=== PATIENT | female | born 1950 | race Caucasian/White ===

== ENCOUNTER → 2018-01-06 12:23 | Outpatient (CLI) | payer OTHER, SELFPAY ==
--- NOTE | 2018-01-06 | DI.MG.S_ITS ---
BILATERAL DIGITAL SCREENING MAMMOGRAM 3D/2D WITH CAD: 01/06/2018 CLINICAL: Routine screening. Comparison is made to exams dated: 11/30/2016 mammogram, 09/16/2015 mammogram, and 07/02/2014 mammogram - [facility]. The tissue of both breasts is heterogeneously dense. This may lower the sensitivity of mammography. Current study was also evaluated with a Computer Aided Detection (CAD) system. There is a biopsy clip in the left breast. No significant masses, calcifications, or other findings are seen in either breast. There has been no significant interval change. IMPRESSION: NEGATIVE There is no mammographic evidence of malignancy. A 1 year screening mammogram is recommended. This exam was interpreted at Station ID: [id number]. NOTE: For mammograms, a report in lay terms will be sent to the patient. Approximately 15% of breast malignancies will not be visualized mammographically. In the management of a palpable breast mass, a negative mammogram must not discourage biopsy of a clinically suspicious lesion. Electronically Signed By: Luis Daniel ordonez/umm:01/06/2018 13:30:38 letter sent: Normal Exam ACR BI-RADS Category 1: Negative 3341F
== END ==
PROVIDERS: PCP Family Medicine; Visit Provider Family Medicine
DX: Z12.31 Encounter for screening mammogram for malignant neoplasm of breast (principal)
CPT/HCPCS: 77063; 77067

== ENCOUNTER → 2018-12-19 14:42 | Outpatient (CLI) | payer OTHER, SELFPAY ==
--- NOTE | 2018-12-19 | DI.RAD.S_ITS ---
PROCEDURE: XR KNEE LT 3V INDICATIONS: LEFT KNEE PAIN TECHNIQUE: 3 views of the knee were acquired. COMPARISON: None. FINDINGS: Bones: No fractures or dislocations there is mild thinning of the joints interspace at the medial compartment. No suspicious bony lesions. Soft tissues: No joint effusion. No suspicious soft tissue calcifications. IMPRESSION: Mild medial compartment knee joint osteoarthritis, no trauma found. Dictated by: Augie Nazario M.D. on 12/19/2018 at 15:18 Approved by: Augie Nazario M.D. on 12/19/2018 at 15:18
== END ==
PROVIDERS: PCP Family Medicine; Visit Provider Family Medicine
DX: M25.562 Pain in left knee (principal); M17.12 Unilateral primary osteoarthritis, left knee
CPT/HCPCS: 73562

== ENCOUNTER → 2018-12-26 09:35 | Outpatient (CLI) | payer OTHER, SELFPAY | PROVIDERS: PCP Family Medicine; Visit Provider Family Medicine | DX: M81.0 Age-related osteoporosis without current pathological fracture (principal); Z78.0 Asymptomatic menopausal state; Z82.62 Family history of osteoporosis; Z87.891 Personal history of nicotine dependence | CPT/HCPCS: 77080 ==

== ENCOUNTER → 2019-01-11 07:37 | Outpatient (CLI) | payer OTHER, SELFPAY ==
--- NOTE | 2019-01-11 | DI.MG.S_ITS ---
BILATERAL DIGITAL SCREENING MAMMOGRAM 3D/2D WITH CAD: 01/11/2019 CLINICAL: Routine screening. Comparison is made to exams dated: 01/06/2018 mammogram, 11/30/2016 mammogram, and 09/16/2015 mammogram - [facility]. The tissue of both breasts is heterogeneously dense. This may lower the sensitivity of mammography. Current study was also evaluated with a Computer Aided Detection (CAD) system. There is a benign biopsy clip in the left breast. No significant masses, calcifications, or other findings are seen in either breast. There has been no significant interval change. IMPRESSION: NEGATIVE There is no mammographic evidence of malignancy. A 1 year screening mammogram is recommended. This exam was interpreted at Station ID: [id number]. NOTE: For mammograms, a report in lay terms will be sent to the patient. Approximately 15% of breast malignancies will not be visualized mammographically. In the management of a palpable breast mass, a negative mammogram must not discourage biopsy of a clinically suspicious lesion. Electronically Signed By: Tommy walters/umm:01/11/2019 11:47:30 letter sent: Normal Exam ACR BI-RADS Category 1: Negative 3341F
== END ==
PROVIDERS: PCP Family Medicine; Visit Provider Family Medicine
DX: Z12.31 Encounter for screening mammogram for malignant neoplasm of breast (principal)
CPT/HCPCS: 77063; 77067

== ENCOUNTER → 2019-07-04 13:32 | Outpatient (CLI) | payer MEDICARE, OTHER, SELFPAY ==
--- NOTE | 2019-07-04 | DI.ECHO.S_ITS ---
[facility] +---------+ : : [address] [place] : : : : [id number] : : : : Phone: [phone]+ Echocardiogram Report + + :Name: SAW JONES Study Date: 07/04/2019 Height: 64 in : :[facility] Weight: 133 lb : : Gender: Female BSA: 1.6 m2 : :: 1950 Age: 69 yrs BP: 142/78 mmHg: :Reason For Study: Hypertension : : Performed By: [facility] Staff : :Referring: JB HOLM : + + Interpretation Summary The left ventricle is normal in size. The ejection fraction is estimated to be 60-65%. The right ventricle is normal in size and function. There is mild aortic valve sclerosis. There is minimally reduced leaflet mobility. There is no hemodynamically significant valvular aortic stenosis. Procedure: A two-dimensional transthoracic echocardiogram with color flow and Doppler was performed. The study quality was technically adequate. There is no prior echocardiogram noted for this patient. The patient was in sinus bradycardia with heart rates between 51-54 bpm during the exam. Left Ventricle: The left ventricle is normal in size. There is mild concentric left ventricular hypertrophy. There is no thrombus. Left ventricular systolic function is normal. The ejection fraction is estimated to be 60-65%. Left ventricular wall motion is normal. MV E/A: 1.0 Med Peak E' Wood: 5.3 cm/sec E/E' med: 16.9. Right Ventricle: The right ventricle is normal in size and function. Atria: The left atrium is mildly dilated. Right atrial size is normal. The interatrial septum is intact with no evidence for an atrial septal defect. Mitral Valve: The mitral valve leaflets appear mildly thickened, but open well. There is mild mitral annular calcification. There is systolic anterior motion of the chordal apparatus. There is trace mitral regurgitation. Aortic Valve: There is mild aortic valve sclerosis. The aortic valve is trileaflet. There is minimally reduced leaflet mobility. There is no hemodynamically significant valvular aortic stenosis. No aortic regurgitation is present. Tricuspid Valve: The tricuspid valve is normal. There is trace tricuspid regurgitation. Pulmonary artery pressures cannot be estimated because of the lack of a measurable TR jet velocity. Pulmonic Valve: The pulmonic valve is not well visualized. There is trace pulmonic regurgitation. Great Vessels: The aortic root is normal size. The dimensions of the ascending aorta are normal. The pulmonary artery is normal size. The IVC is of normal diameter and collapses greater than 50% with a sniff. This suggests a low right atrial pressure of 3 mm Hg. Pericardium/ Pleura There is no pericardial effusion. There is no pleural effusion. MMode/2D Measurements & Calculations LVIDd: 4.7 cm LVOT diam: 2.0 cm LVIDs: 2.9 cm Ao root diam: 3.1 cm FS: 39.0 % EPSS: 0.45 cm IVSd: 1.1 cm LVPWd: 1.1 cm LV parra. diameter/BSA (cm/m^2): 2.9 LV sys. diameter/BSA (cm/m^2): 1.8 LA A2 area: 18.7 cm2 RA long axis: 4.7 cm LA A4 area: 21.0 cm2 RA area: 15.1 cm2 LA length (vol): 5.3 cm RA vol: 41.3 ml LA vol: 63.1 ml RA : 25.1 ml/m2 LA vol index: 38.4 ml/m2 TAPSE: 2.8 cm Doppler Measurements & Calculations Ao V2 max: 179.1 cm/sec LVOT Max Wood: 121.3 cm/sec Ao V2 mean: 133.0 cm/sec LV V1 max P.9 mmHg Ao max P.8 mmHg LV V1 VTI: 30.9 cm Ao mean P.0 mmHg BRITNI(I,D): 2.3 cm2 Ao V2 VTI: 42.0 cm BRITNI(V,D): 2.1 cm2 sev ratio: 0.73 BRITNI indexed to BSA (cm^2/m^2): 1.4 MV E max wood: 89.0 cm/sec PA V2 max: 61.1 cm/sec MV A max wood: 88.1 cm/sec PA V2 mean: 45.9 cm/sec MV E/A: 1.0 PA mean P.94 mmHg Med Peak E' Wood: 5.3 cm/sec PA Accel Time: 0.15 sec E/E' med: 16.9 Lat Peak E' Wood: 8.3 cm/sec E/E' lat: 10.7 E/e' average: 13.8 MV dec time: 0.28 sec SV(LVOT): 96.1 ml Reading Physician:06:55 PM
== END ==
PROVIDERS: PCP Family Medicine; Visit Provider Family Medicine
DX: I35.8 Other nonrheumatic aortic valve disorders (principal); I10 Essential (primary) hypertension
CPT/HCPCS: 93306

== ENCOUNTER → 2020-02-27 08:40 | Outpatient (CLI) | payer MEDICARE, OTHER, SELFPAY ==
--- NOTE | 2020-02-27 | DI.RAD.S_ITS ---
PROCEDURE: XR KNEE RT 3V INDICATIONS: RIGHT KNEE PAIN TECHNIQUE: 3 views of the knee were acquired. COMPARISON: None. FINDINGS: Bones: No fractures or dislocations. No suspicious bony lesions. Mild lateral compartment osteoarthritis. Soft tissues: No joint effusion. No suspicious soft tissue calcifications. IMPRESSION: No fracture. No acute osseous lesion. If symptoms and/or clinical suspicion for pathology persists, further assessment with repeat radiographs (7-10 days) or advanced imaging (e.g. CT, MRI or bone scan) may be helpful. Dictated by: Carole Patel MD, PhD on 02/27/2020 at 10:03 Approved by: Carole Patel MD, PhD on 02/27/2020 at 10:04
== END ==
PROVIDERS: PCP Family Medicine; Referring Provider Family Medicine; Visit Provider Family Medicine
DX: M25.561 Pain in right knee (principal)
CPT/HCPCS: 73562

== ENCOUNTER → 2020-03-02 07:50 | Outpatient (CLI) | payer MEDICARE, OTHER, SELFPAY ==
--- NOTE | 2020-03-02 | DI.MRI.S_ITS ---
PROCEDURE: MR KNEE RT WO CON INDICATIONS: Pain in right knee TECHNIQUE: Noncontrast sagittal PD fast spin echo and T2 fast spin echo with fat saturation, sagittal 3-D FLASH with fat saturation; coronal T1 spin echo and PD fast spin echo with fat saturation, and axial PD fast spin echo with fat saturation through the knee. COMPARISON: [facility], CR, XR KNEE RT 3V, 02/27/2020, 8:35. FINDINGS: Image quality: Excellent. Menisci: The body of the medial meniscus is truncated. There is complex tear in the body and posterior horn of the medial meniscus. There is also a tear in the free edge of the anterior horn of the medial meniscus. The lateral meniscus demonstrates normal morphology and internal signal. The meniscal root ligaments appear intact. Cruciate ligaments: The anterior appears thickened and demonstrates increased signal consistent with partial tear. The posterior cruciate ligament appears intact. Medial structures: There is grade 2 sprain of the anterior fibers of the medial collateral ligament. The semimembranosus tendon insertions and meniscocapsular junction appear intact. Visualized portions of the pes anserinus tendons appear normal. No abnormal bursal fluid. Lateral structures: The lateral collateral ligament, long and short heads of the biceps femoris tendon appear intact. The popliteus tendon appears normal. Iliotibial band appears normal. Anterior structures: The quadriceps and patellar tendons appear intact. Patellar alignment is normal. No femoral trochlear dysplasia or ventral trochlear prominence. No edema in the infrapatellar fat pad. Bones and cartilage: No fractures. There is mild marrow edema in the medial femoral condyle and lateral tibial plateau. Mild tricompartmental cartilage loss and signal degeneration. Joint space: There is moderate knee joint effusion. Tiny Quintana's cyst. Normal appearing synovial plicae are incidentally noted. IMPRESSION: 1. Partial tear of anterior cruciate ligament. 2. Complex tear of the body and posterior horn of the medial meniscus. There is also tear involving the free edge of the anterior horn of the medial meniscus. 3. Grade 2 sprain of the MCL. 4. Moderate knee joint effusion. 5. Mild bone contusion in the medial femoral condyle and lateral tibial plateau. No fractures. 6. Mild tricompartmental cartilage loss and signal degeneration. Dictated by: Silvana Mcgarry M.D. on 03/04/2020 at 10:20 Approved by: Silvana Mcgarry M.D. on 03/04/2020 at 11:22
== END ==
PROVIDERS: PCP Family Medicine; Referring Provider Family Medicine; Visit Provider Family Medicine
DX: M25.561 Pain in right knee (principal); S83.231A Complex tear of medial meniscus, current injury, right knee, initial encounter; S83.511A Sprain of anterior cruciate ligament of right knee, initial encounter; S83.411A Sprain of medial collateral ligament of right knee, initial encounter; S80.01XA Contusion of right knee, initial encounter; M25.461 Effusion, right knee
CPT/HCPCS: 73721

== ENCOUNTER → 2020-05-01 12:58 | Outpatient (CLI) | payer MEDICARE, OTHER, SELFPAY ==
--- NOTE | 2020-05-01 | DI.CT.S_ITS ---
PROCEDURE: CT ABDOMEN PELVIS W CON INDICATIONS: Diarrhea, unspecified TECHNIQUE: After the administration of oral and intravenous contrast, 5 mm thick sections acquired from the diaphragms to the symphysis. 5 mm thick coronal and sagittal reformats were performed. For radiation dose reduction, the following was used: automated exposure control, adjustment of mA and/or kV according to patient size. COMPARISON: None. FINDINGS: Image quality: Excellent. ABDOMEN: Lung bases: Lung bases are clear. Heart size is normal. Solid organs: Liver is normal in size and enhancement. Gallbladder contains gallstones. Prominent common bile duct measuring 7.3 mm. The pancreatic duct is mildly dilated measuring up to 4 mm. Pancreas enhances normally. Spleen is normal in size and enhancement. No adrenal nodules. Kidneys are normal in size and enhancement, without hydronephrosis. Peritoneum and bowel: Stomach and small bowel loops are normal in caliber and wall thickness. There is redundant colon. Sigmoid colon appears mildly thickened. A moderate amount of stool is present in colon. No free fluid or air. Nodes and vessels: No retroperitoneal or mesenteric adenopathy. Aorta and inferior vena cava are normal in caliber. Moderate atherosclerosis. Miscellaneous: No ventral hernias. PELVIS: Genitourinary: Bladder wall thickness is normal. Uterus is unremarkable. The there are enlarged venous channels in pelvis suggesting pelvic congestion syndrome. Ovaries are not well seen. No adnexal mass. No pathological free-fluid. Miscellaneous: No inguinal hernias or adenopathy. Bones: No suspicious bony lesions. No vertebral body compression fractures. IMPRESSION: 1. Redundant colon. Sigmoid colon appears mildly thickened suggesting mild colitis. 2. Prominent gonadal veins are noted in pelvis, suggesting pelvic congestion syndrome. 3. Cholelithiasis. The common bile duct is prominent in caliber measuring 7.3 mm. The pancreatic duct is mildly dilated measuring 4 mm. MRCP is suggested for follow-up if clinically indicated. Dictated by: Silvana Mcgarry M.D. on 05/01/2020 at 16:49 Approved by: Silvana Mcgarry M.D. on 05/01/2020 at 17:26
== END ==
PROVIDERS: PCP Family Medicine; Referring Provider Family Medicine; Visit Provider Family Medicine
DX: R19.7 Diarrhea, unspecified (principal); Q43.8 Other specified congenital malformations of intestine; K80.20 Calculus of gallbladder without cholecystitis without obstruction; K86.89 Other specified diseases of pancreas
CPT/HCPCS: 74177

== ENCOUNTER → 2020-05-07 12:48 | Outpatient (CLI) | payer MEDICARE, OTHER, SELFPAY ==
[2020-05-07 13:19] LABS: Add Manual Diff / Slide Review NO; Basophils Absolute Auto 100 /uL (0-100); Basophils Percent Auto 0.5 % (0-2); Eosinophils Absolute Auto 300 /uL (0-450); Eosinophils Percent Auto 2.6 % (2-4); Hematocrit 39.6 % (36-46); Hemoglobin 13.8 g/dL (12.0-16.0); Lymphocytes Absolute Auto 2900 /uL (1100-4500); Lymphocytes Percent Auto 28.2 % (25-40); Mean Corpuscular HGB Conc 34.8 % (30-36); Mean Corpuscular Hemoglobin 32.4 PG (26-34); Mean Corpuscular Volume 92.9 fL (80-100); Monocytes Absolute Auto 1000 /uL (0-900); Monocytes Percent Auto 9.6 % (3-14); Neutrophils Absolute Auto 6100 /uL (1500-7000); Neutrophils Percent Auto 59.1 % (50-75); Platelet Count 349 X10^3/uL (150-400); Red Blood Cell Count 4.27 X10^6/uL (4.0-5.2); Red Cell Distribution Width 12.9 % (11.6-14.8); White Blood Cell Count 10.3 X10^3/uL (4.5-11.0)
[2020-05-07 13:43] LABS: Alanine Aminotransferase 22 IU/L (<35); Albumin 4.3 g/dL (3.5-5.0); Albumin Globulin Ratio 1.3 (1.0-2.8); Alkaline Phosphatase 80 U/L (38-126); Aspartate Aminotransferase 31 IU/L (14-36); BUN Creatinine Ratio 17.9 (6-22); Bilirubin Total 0.5 mg/dL (0.2-1.3); Blood Urea Nitrogen 10 mg/dL (7-17); Calcium 9.3 mg/dL (8.4-10.2); Carbon Dioxide 29 mmol/L (22-32); Chloride 94 mmol/L (98-107); Estimated Glomerular Filt Rate > 60.0 mL/min (>60); Globulin 3.3 g/dL (1.7-4.1); Glucose 100 mg/dL (80-110); HEMOLYSIS < 15 (0-50); Potassium 3.7 mmol/L (3.4-5.1); Sodium 130 mmol/L (137-145); Total Protein 7.6 g/dL (6.3-8.2)
[2020-05-07 13:44] LABS: C-Reactive Protein Quant < 0.5 mg/dL (<1.0)
== END ==
PROVIDERS: PCP Family Medicine; Referring Provider Family Medicine; Visit Provider Family Medicine
DX: R19.7 Diarrhea, unspecified (principal)
CPT/HCPCS: 36415; 80053; 85025; 86140

== ENCOUNTER → 2020-06-17 10:31 | Outpatient (CLI) | payer MEDICARE, OTHER, SELFPAY ==
[2020-06-17 12:56] LABS: COVID19 -Nasal RAPID Negative (Negative)
== END ==
PROVIDERS: PCP Family Medicine; Visit Provider Surgery
DX: K52.9 Noninfective gastroenteritis and colitis, unspecified (principal); Z11.59 Encounter for screening for other viral diseases
CPT/HCPCS: 87635; C9803

== ENCOUNTER 2020-06-18 11:43 | Day surgery (SDC) | payer MEDICARE, OTHER, SELFPAY ==
[2020-06-18] VITALS (7 sets, daily range): BP systolic 99–147; BP diastolic 64–92; PULSE 52–68; RESP 11–16; TEMP 36.2–36.9; O2SAT 93–98; BMI 22.3
--- NOTE | 2020-06-18 | PATH_ITS ---
[facility] Accession Number: [id number] . 01 Material submitted: . colon - RANDOM COLON BX . 01 Clinical history: . DX COLONOSCOPY W/BX R/O MICRO-COLITIS . 02 Diagnosis: Random Colon, Biopsy: Lymphocytic colitis. Negative for granulomas, dysplasia, and malignancy. MRV 06/20/2020 1233 Local . 02 Electronically signed: . Bhargavi Lockhart MD, Pathologist NPI- [id number] . 01 Gross description: . RANDOM COLON BX: Received in formalin are multiple fragment(s) of pete, soft tissue measuring 0.1 x 0.1 x 0.1 cm to 0.5 x 0.4 x 0.3 cm submitted entirely in 1 cassette(s) /AMOL 06/19/2020 0141 Local . 02 Pathologist provided ICD-10: K52.89 . 02 CPT . 955550 Performed at: 01 [facility] [address] [facility] [place], [place], [place] [id number] MD Tommy Lennon MD Phone: [phone] Performed at: 02 [facility] [address] [place], [place] [id number] MD Bhargavi Lockhart MD Phone: [phone]
[2020-06-18] MEDS: SODIUM CHLORIDE 0.9% 1,000 ML 200 ML IV (12:35)
--- NOTE | 2020-06-18 13:12 | PM.PREOP ---
Pre-operative Note COVID-19 COVID-19 status: Negative Result date/Date tested (Pos, Neg/Pending): 06/17/20 Interval Note History & Physical reviewed/Exam performed by Physician: Yes Changes to H&P: No H&P completed within 30 days and has changed as indicated here:: patient completed prep; denies changes since H and P ASA Class (for procedural sedation): II
--- NOTE | 2020-06-18 13:13 | PM.OP.ENDO ---
Operative Date/Time/Diagnoses Date of procedure: 06/18/20 Time of procedure: 13:13 Pre-op diagnosis: Chronic diarrhea Post-op diagnosis: same Procedure & Clinicians Study performed: Colonoscopy to hepatic flexure Procedural sedation performed by the endoscopist Random biopsies of colonic mucosa Same procedure as scheduled: Yes Indications: Chronic diarrhea, due for colon cancer screening Surgeon: Karen Plascencia Procedure Notes SCOAP/Timeout: Performed Procedure in detail: The patient was brought to the room and placed in left lateral decubitus position with all bony prominences padded. A time-out was performed and then the patient was given procedural sedation starting with 4 mg of Versed and 100 mcg of fentanyl. A total of 7 mg of Versed and 250 micro g of fentanyl were given for the entire procedure. Vitals were monitored throughout the procedure and remained stable. Once adequately sedated, the procedure was begun. A rectal exam was performed revealing no abnormalities. The colonoscope was then introduced to the rectum and advanced in the usual fashion. The colon was quite redundant, with many difficult folds to traverse. At 1 point I was not able to get the colon to unfold or 2 advance safely any further. I believe this was at the hepatic flexure. However given that there are very few markings, and extensive redundancy and lack of tone to the colon, this was not entirely clear. With multiple maneuvers including using the stiffener, switching from CO2 to air, turning off the suction, and applying pressure to the abdominal wall, we were not able to get that area of the colon to open up. At this point point I felt it was unsafe to proceed forward any further. The scope was then retracted while rotating side to side and examining each mucosal fold. Random biopsies were taken throughout the colon. At the conclusion of the procedure retroflexion was performed and moderate grade 2-3 internal hemorrhoids without stigmata of bleeding were seen. The scope was then withdrawn from the rectum the procedure was concluded. The patient tolerated the procedure well and was transferred to the PACU in stable condition. Scope withdrawal time: 8 Sedation minutes: 38 Findings: other findings (Extremely redundant and tortuous colon lacking muscle tone) Specimen(s): other (Random biopsies to rule out microscopic colitis) Complications: none Impression: Extremely redundant and tortuous colon, no obvious polyps or masses, no visible active colitis Post-procedure Recommendations: Other recommendation (Recommend CT colonography to visually evaluate the entire colon) Follow up: as needed Disposition: PACU
[2020-06-18] MEDS: fentaNYL 250 MCG/5 ML INJ IV (13:40)
[2020-06-18] MEDS: MIDAZOLAM 5 MG/5 ML VIAL IV (13:40)
== END 2020-06-18 15:20 | disposition home or self-care (01) ==
PROVIDERS: PCP Family Medicine; Referring Provider Family Medicine; Visit Provider Surgery
PROC: 0DJD8ZZ Inspection of Lower Intestinal Tract, Via Natural or Artificial Opening Endoscopic (ICD-10-PCS; CPT 45378; principal; 2020-06-18 13:00)
DX: K52.89 Other specified noninfective gastroenteritis and colitis (principal); K64.1 Second degree hemorrhoids
CPT/HCPCS: 45380; 99152; 99153; J2250; J3010

== ENCOUNTER → 2020-07-10 11:06 | Outpatient (CLI) | payer MEDICARE, OTHER, SELFPAY ==
--- NOTE | 2020-07-10 | DI.MG.S_ITS ---
BILATERAL DIGITAL SCREENING MAMMOGRAM 3D/2D WITH CAD: 07/10/2020 CLINICAL: Routine screening. Comparison is made to exams dated: 01/11/2019 mammogram, 01/06/2018 mammogram, and 11/30/2016 mammogram - [facility]. The tissue of both breasts is heterogeneously dense. This may lower the sensitivity of mammography. Current study was also evaluated with a Computer Aided Detection (CAD) system. There is a biopsy clip in the left breast. No significant masses, calcifications, or other findings are seen in either breast. There has been no significant interval change. IMPRESSION: NEGATIVE There is no mammographic evidence of malignancy. A 1 year screening mammogram is recommended. This exam was interpreted at Station ID: [id number]. NOTE: For mammograms, a report in lay terms will be sent to the patient. Approximately 15% of breast malignancies will not be visualized mammographically. In the management of a palpable breast mass, a negative mammogram must not discourage biopsy of a clinically suspicious lesion. Electronically Signed By: Tommy walters/umm:07/10/2020 11:55:57 letter sent: Normal Exam ACR BI-RADS Category 1: Negative 3341F
== END ==
PROVIDERS: PCP Family Medicine; Referring Provider Family Medicine; Visit Provider Family Medicine
DX: Z12.31 Encounter for screening mammogram for malignant neoplasm of breast (principal)
CPT/HCPCS: 77063; 77067

== ENCOUNTER → 2020-10-16 14:46 | Outpatient (CLI) | payer MEDICARE, OTHER, SELFPAY ==
[2020-10-16] MEDS: COVID-19 VACC, Ad26(JANSSEN)/PF 0.5 ML IM (15:05)
== END ==
PROVIDERS: PCP Family Medicine; Visit Provider Internal Medicine
DX: Z23 Encounter for immunization (principal)
CPT/HCPCS: 0031A; 91303

== ENCOUNTER → 2021-06-23 14:25 | Outpatient (CLI) | payer MEDICARE, OTHER, SELFPAY ==
--- NOTE | 2021-06-23 14:28 | DI.RAD.S_ITS ---
PROCEDURE: XR CHEST 2V INDICATIONS: HYPONATREMIA TECHNIQUE: 2 views of the chest were acquired. COMPARISON: [facility], , CHEST 2 VIEW, 02/18/2015, 10:58. FINDINGS: Surgical changes and devices: None. Lungs and pleura: Lungs are clear. No pleural effusions or pneumothorax. Mediastinum: Mediastinal contours are normal. Heart size is normal. Bones and chest wall: No suspicious bony abnormalities. Soft tissues appear unremarkable. IMPRESSION: No acute cardiopulmonary abnormality. Dictated by: Deejay Dawson M.D. on 06/23/2021 at 15:19 Approved by: Deejay Dawson M.D. on 06/23/2021 at 15:19
== END ==
PROVIDERS: PCP Family Medicine; Referring Provider Family Medicine; Visit Provider Family Medicine
DX: E87.1 Hypo-osmolality and hyponatremia (principal)
CPT/HCPCS: 71046

== ENCOUNTER → 2021-11-19 09:59 | Outpatient (CLI) | payer MEDICARE, OTHER, SELFPAY | PROVIDERS: PCP Family Medicine; Referring Provider Family Medicine; Visit Provider Family Medicine | DX: M81.0 Age-related osteoporosis without current pathological fracture (principal); Z78.0 Asymptomatic menopausal state | CPT/HCPCS: 77080 ==

== ENCOUNTER → 2022-04-29 14:48 | Outpatient (CLI) | payer MEDICARE, OTHER, SELFPAY ==
--- NOTE | 2022-04-29 14:49 | DI.MG.S_ITS ---
BILATERAL DIGITAL SCREENING MAMMOGRAM 3D/2D WITH CAD: 04/29/2022 CLINICAL: Routine screening. Comparison is made to exams dated: 07/10/2020 mammogram, 01/11/2019 mammogram, 01/06/2018 mammogram, and 11/30/2016 mammogram - [facility]. Both breasts are heterogeneously dense, which may obscure small masses (category c / 51-75% glandular tissue). Current study was also evaluated with a Computer Aided Detection (CAD) system. There is a biopsy clip in the left breast. No significant masses, calcifications, or other findings are seen in either breast. There has been no significant interval change. IMPRESSION: NEGATIVE There is no mammographic evidence of malignancy. A 1 year screening mammogram is recommended. Based on Tyrer-Cuzick model (a risk assessment model), the patient's lifetime risk is 52.3% and her 10 year risk is 37.3%. If a patient has an elevated risk, a more comprehensive evaluation should be considered and/or a referral to a genetic counselor. The [place] [employer], [place], and NCCN Guidelines advise the consideration of Breast MRI as an adjunct to screening mammography in patients whose Lifetime risk to develop breast cancer is 20% or higher. This exam was interpreted at Station ID: [id number]. NOTE: For mammograms, a report in lay terms will be sent to the patient. Approximately 15% of breast malignancies will not be visualized mammographically. In the management of a palpable breast mass, a negative mammogram must not discourage biopsy of a clinically suspicious lesion. Electronically Signed By: Deejay reyna/umm:04/29/2022 17:27:25 letter sent: Normal Exam ACR BI-RADS Category 1: Negative 3341F
== END ==
PROVIDERS: PCP Family Medicine; Referring Provider Family Medicine; Visit Provider Family Medicine
DX: Z12.31 Encounter for screening mammogram for malignant neoplasm of breast (principal)
CPT/HCPCS: 77063; 77067

== ENCOUNTER → 2022-06-01 08:03 | Outpatient (CLI) | payer MEDICARE, OTHER, SELFPAY ==
--- NOTE | 2022-06-01 | DI.ECHO.S_ITS ---
Version: 1 Study ID: [id number] [address] [place] [address] Name: SAW JONES Study Date: 06/01/2022, 8: 13 AM : 1950 BP: 207 / 110 mmHg Gender: Female Height: 63 in Age: 72 Years Weight: 122.002 lb BSA: 1.57 mA? Ordering: JB HOLM Referring: JB HOLM Clinician: Juan Jose Mcdowell Reason For Study: Hypertension History: Summary Statements Sinus bradycardia with heart rate of 55-58 bpm. Uncontrolled hypertension noted during exam (207/110) Normal LV size and mildly increased wall thickness; normal wall motion and LV systolic function. EF is 55-60%. Stage I diastolic dysfunction. Mild LA enlargement; otherwise normal chamber sizes. Aortic valve leaflets are mildly thickened and calcified (especially at the tips). Mitral valve leaflets demonstrate somewhat redundant cordae but without significant regurgitation. No prior study available for comparison. Procedure: A two-dimensional transthoracic echocardiogram with color flow and Doppler was performed. The study quality was technically adequate. Comparison is made with the echocardiogram of 07/04/2019. Left Ventricle: Diastolic parameters suggest a relaxation abnormality of the left ventricle, consistent with probable normal filling pressures. Left ventricular systolic function is normal. The ejection fraction is estimated to be 55-60%. The left ventricle is normal in size. There is mild concentric left ventricular hypertrophy. There are no focal wall motion abnormalities. Right Ventricle: The right ventricle is normal in size and function. Atria: The interatrial septum grossly appears intact with no obvious evidence for an atrial septal defect. The left atrium is mildly dilated. Right atrial size is normal. Mitral Valve: There is mild mitral regurgitation. The mitral valve is normal in structure and function. Aortic Valve: No aortic regurgitation is present. There is mild aortic valve sclerosis. Tricuspid Valve: There is mild tricuspid regurgitation. The right ventricular systolic pressure is estimated to be at least 29 mmHg based on an estimated right atrial pressure of 3 mm Hg. The tricuspid valve is normal in structure and function. Pulmonic Valve: There is no pulmonic valvular regurgitation. The pulmonic valve is normal in structure and function. Great Vessels: The dimensions of the ascending aorta are normal. The aortic root is normal size. The IVC is of normal diameter and collapses greater than 50% with a sniff. This suggests a low right atrial pressure of 3 mm Hg. Pericardium/ Pleura: There is no pericardial effusion. There is no pleural effusion. 2D and M-Mode Measurements and Calculations LVIDd: 4.9 cm LVOT diam: 2.00 cm LVIDs: 2.25 cm Ao root diam: 3.2 cm IVSd: 1.20 cm asc Aorta Diam: 3.6 cm LVPWd: 1.20 cm LV parra. diameter/BSA (cm/m^2): 3.1 LV sys. 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 LA A2 area: 17.4 professor of poultry science? RA long axis: 5.1 cm LA length (vol): 5.3 cm RA vol: 36.6 ml LA vol: 55.2 ml RA : 23.4 ml/mA? LA vol index: 35.2 ml/mA? 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 BRITNI(V,D): 1.82 professor of poultry science? BRITNI indexed to BSA (cm^2/m^2): 1.21 sev ratio: 0.60 MV E max wood: 71.1 cm/sec MV dec time: 0.25 sec MV A max wood: 71.6 cm/sec MV E/A: 0.99 Med Peak E' Wood: 4.8 cm/sec Lat Peak E' Wood: 8.5 cm/sec E/e' average: 11.5 TR max wood: 257.0 cm/sec TR max P.4 mmHg Hamida Reyes M.D. Electronically signed by: Hamida Reyes M.D. 06/02/2022, 8: 40 AM
== END ==
PROVIDERS: PCP Family Medicine; Referring Provider Family Medicine; Visit Provider Family Medicine
DX: I10 Essential (primary) hypertension (principal); I08.3 Combined rheumatic disorders of mitral, aortic and tricuspid valves
CPT/HCPCS: 93306

== ENCOUNTER → 2023-10-15 10:22 | Outpatient (CLI) | payer MEDICARE, OTHER, SELFPAY ==
--- NOTE | 2023-10-15 10:24 | DI.RAD.S_ITS ---
Bone Density Report Name: SAW JONES Age: 73 Sex: Female Ethnicity: White Date of : 1950 Indication: postmenopausal osteoporosis; Referring Provider: JB HOLM Study: Bone densitometry was performed. Exam Date: October 15, 2023 Accession number: [id number] Bone Density: Region BMD T-score Z-score Classification AP Spine(L1, L2, L3) 0.728 -2.6 -0.5 Osteoporosis Femoral Neck (Left) 0.721 -1.2 0.7 Osteopenia Total Hip (Left) 0.833 -0.9 0.7 Normal Femoral Neck (Right) 0.767 -0.7 1.2 Normal Total Hip (Right) 0.780 -1.3 0.3 Osteopenia Total Hip Mean 0.807 -1.1 0.5 Osteopenia World Health Organization criteria for BMD impression classify patients as: Normal (T-score at or above -1.0), Osteopenia (T-score between -1.0 and -2.5), or Osteoporosis (T-score at or below -2.5). 10-year Fracture Risk: FRAX not reported because: Some T-score for Spine Total or Hip Total or Femoral Neck at or below -2.5 Previous Exams: -- Region Exam Age BMD T-score BMD Change BMD Change Date g/cm2 vs Baseline vs Previous -- AP Spine (L1-L3) 10/15/2023 73 0.728 -2.6 -0.115 (-13.6%)# 0.031 (4.5%)# 11/19/2021 71 0.697 -2.9 -0.146 (-17.3%)# -0.007 (-1.0%)# 12/26/2018 68 0.704 -2.9 -0.139 (-16.4%)* -0.020 (-2.8%) 12/25/2016 66 0.724 -2.7 -0.119 (-14.1%)* -0.007 (-1.0%) 05/05/2013 63 0.732 -2.6 -0.111 (-13.2%)* -0.024 (-3.2%)* 12/19/2010 60 0.756 -2.4 -0.087 (-10.3%)* -0.039 (-4.9%)* 11/02/2008 58 0.795 -2.0 -0.048 (-5.7%)* -0.048 (-5.7%)* 10/26/2007 57 0.843 -1.6 Total Hip(Left) 10/15/2023 73 0.833 -0.9 -0.112 (-11.8%)# -0.007 (-0.8%)# 11/19/2021 71 0.840 -0.8 -0.105 (-11.1%)# -0.011 (-1.3%)# 12/26/2018 68 0.851 -0.7 -0.094 (-9.9%)* -0.035 (-4.0%)* 12/25/2016 66 0.886 -0.5 -0.058 (-6.2%)* -0.018 (-1.9%) 05/05/2013 63 0.904 -0.3 -0.041 (-4.3%)* -0.008 (-0.9%) 12/19/2010 60 0.912 -0.2 -0.033 (-3.5%)* -0.041 (-4.3%)* 11/02/2008 58 0.953 0.1 0.009 (0.9%) 0.009 (0.9%) 10/26/2007 57 0.945 0.0 Total Hip(Right) 10/15/2023 73 0.780 -1.3 -0.113 (-12.6%)# 0.003 (0.4%)# 11/19/2021 71 0.777 -1.4 -0.116 (-13.0%)# -0.033 (-4.0%)# 12/26/2018 68 0.809 -1.1 -0.083 (-9.3%)* -0.046 (-5.3%)* 12/25/2016 66 0.855 -0.7 -0.038 (-4.2%)* 0.003 (0.3%) 05/05/2013 63 0.852 -0.7 -0.041 (-4.6%)* -0.011 (-1.3%) 12/19/2010 60 0.863 -0.6 -0.030 (-3.3%)* -0.027 (-3.1%)* 11/02/2008 58 0.890 -0.4 -0.003 (-0.3%) -0.003 (-0.3%) 10/26/2007 57 0.893 -0.4 -- *Denotes significance at 95% confidence level, LSC for AP Spine = 0.022 g/cm2, LSC for Total Hip = 0.027 g/cm2 Rate of change results reflect vertebral levels common to all scans # Denotes dissimilar scan types or analysis methods Impression: The patient has osteoporosis, based on the Total Spine T-score. No significant bone loss was observed. Discussion: INCREASED RISK OF FRACTURE. BONE DENSITY IS UNDESIRABLY LOW AT ONE OR MORE SKELETAL SITES, CONSISTENT WITH POSTMENOPAUSAL OSTEOPOROSIS. This patient's lowest T-score meets the World Health Organization's (WHO) criteria for osteoporosis at one or more sites (T-score -2.5 or below). In untreated patients, the risk of osteoporotic fracture increases approximately two-fold for each 1.0 SD decrease in T-score. Low bone density is not the only risk factor for fracture; also consider factors such as patient's age, frailty or poor health, risk of falling, risk of injury, previous osteoporotic fracture, family history of osteoporosis, cigarette smoking, low body weight, etc. Not everyone with low bone mineral density has osteoporosis; osteomalacia and other metabolic bone disorders should also be considered. Patients who have osteoporosis should be evaluated for specific diseases and conditions (secondary causes) that may cause or contribute to bone loss. The [place] [employer] (AACE) and National Osteoporosis Foundation (NOF) recommend pharmacologic intervention for all postmenopausal women whose T-score is in this range. The patient should follow a healthful lifestyle (good nutrition with adequate calcium and vitamin D, and appropriate weight-bearing exercise). Follow-Up: Consider a repeat BMD and Vertebral Fracture Assessment (VFA) exam in 2 years or sooner if medically necessary, to reassess this patient's status. Reported by: RIKY ARZOLA MD on 10/15/2023 11:22:00 AM.
== END ==
LOC: RAD 10:23
PROVIDERS: PCP Family Medicine; Referring Provider Family Medicine; Visit Provider Family Medicine
DX: M81.0 Age-related osteoporosis without current pathological fracture (principal)
CPT/HCPCS: 77080

== ENCOUNTER → 2024-05-25 14:05 | Outpatient (CLI) | payer MEDICARE, OTHER, SELFPAY ==
--- NOTE | 2024-05-25 14:06 | DI.MG.S_ITS ---
BILATERAL DIGITAL SCREENING MAMMOGRAM 3D/2D WITH CAD: 05/25/2024 CLINICAL: Routine screening. Comparison is made to exams dated: 04/29/2022 mammogram, 07/10/2020 mammogram, and 01/11/2019 mammogram - [facility]. The breasts are heterogeneously dense, which may obscure small masses (category c / 51-75% glandular tissue). Current study was also evaluated with a Computer Aided Detection (CAD) system. There are benign calcifications in both breasts. There also is a biopsy clip in the left breast. No significant masses, calcifications, or other findings are seen in either breast. There has been no significant interval change. IMPRESSION: BENIGN There is no mammographic evidence of malignancy. A 1 year screening mammogram is recommended. Based on Tyrer-Cuzick model (a risk assessment model), the patient's lifetime risk is 48.8% and her 10 year risk is 39.2%. If a patient has an elevated risk, a more comprehensive evaluation should be considered and/or a referral to a genetic counselor. The [place] [employer], [place] [employer], and NCCN Guidelines advise the consideration of Breast MRI as an adjunct to screening mammography in patients whose Lifetime risk to develop breast cancer is 20% or higher. This exam was interpreted at Station ID: [id number]. NOTE: For mammograms, a report in lay terms will be sent to the patient. Approximately 15% of breast malignancies will not be visualized mammographically. In the management of a palpable breast mass, a negative mammogram must not discourage biopsy of a clinically suspicious lesion. Electronically Signed By: Flo whitlock/umm:05/26/2024 20:54:40 letter sent: Normal Exam ACR BI-RADS Category 2: Benign
== END ==
LOC: MAMMO 14:06
PROVIDERS: PCP Family Medicine; Referring Provider Family Medicine; Visit Provider Family Medicine
DX: Z12.31 Encounter for screening mammogram for malignant neoplasm of breast (principal); R92.333 Mammographic heterogeneous density, bilateral breasts
CPT/HCPCS: 77063; 77067

== ENCOUNTER → 2024-12-20 12:15 | Outpatient (CLI) | payer MEDICARE, OTHER, SELFPAY ==
--- NOTE | 2024-12-20 12:16 | DI.US.S_ITS ---
PROCEDURE: US ARTERIAL DUPLEX LE BI INDICATIONS: peripheral vascular disease TECHNIQUE: Color and pulse Doppler interrogation was performed of both lower extremity arterial systems, with image documentation. COMPARISON: None. FINDINGS: Right lower extremity: Common femoral artery: 83 cm/sec, with biphasic flow. Deep femoral artery: 73 cm/sec, with biphasic flow. Proximal superficial femoral artery: 71 cm/sec, with biphasic flow. Mid superficial femoral artery: 75 cm/sec, with biphasic flow. Distal superficial femoral artery: 78 cm/sec, with biphasic flow. Popliteal artery: 32 cm/sec, with biphasic flow. Posterior tibial artery: 22 cm/sec, with biphasic flow. Anterior tibial artery/dorsalis pedis: 30 cm/sec, with biphasic flow. [place]awa-scale imaging description: Mild atherosclerotic disease. Left lower extremity: Common femoral artery: 64 cm/sec, with biphasic flow. Deep femoral artery: 110 cm/sec, with biphasic flow. Proximal superficial femoral artery: 54 cm/sec, with biphasic flow. Mid superficial femoral artery: 69 cm/sec, with biphasic flow. Distal superficial femoral artery: 71 cm/sec, with biphasic flow. Popliteal artery: 30 cm/sec, with biphasic flow. Posterior tibial artery: 22 cm/sec, with biphasic flow. Anterior tibial artery/dorsalis pedis: 27 cm/sec, with biphasic flow. [place]awa-scale imaging description: [id number] atherosclerotic disease. IMPRESSION: No hemodynamically significant stenosis. [id number] calcified atherosclerotic disease. Dictated by: Moses Valentin M.D. on 12/21/2024 at 9:56 Approved by: Moses Valentin M.D. on 12/21/2024 at 9:57
== END ==
LOC: US 12:16
PROVIDERS: PCP Family Medicine; Referring Provider Family Medicine; Visit Provider Family Medicine
DX: I73.9 Peripheral vascular disease, unspecified (principal)
CPT/HCPCS: 93925